=== PATIENT | female | born 1945 | race Caucasian/White ===

== ENCOUNTER 2020-11-26 05:56 | Observation (INO) ==
[2020-11-22 12:58] LABS: INR 1.1; PT Patient Result 11.9 SECS (9.8-11.9); Partial Thromboplastin Time 30.5 SECS (23.9-33.8)
[2020-11-22 13:20] LABS: Calcium 9.1 MG/DL (8.5-10.1); Osmolality,Calculated 280.5 MOS/KG (273-304); Potassium 4.7 MMOL/L (3.5-5.1)
[2020-11-22 13:22] LABS: Basophils % 0.4 % (0.0-0.8); Eosinophils # 0.2 10*3/uL (0.0-0.87); Eosinophils % 4.3 % (0.00-10.9); Hematocrit 39.5 VOL% (35.7-47.0); Hemoglobin 13.1 GM/DL (12.0-16.0); Immature Granulocytes % 0.4 %; Immature Granulocytes Absolute 0.02 #; Lymphocytes # 1.6 10*3/uL (1.4-4.0); Lymphocytes % 30.6 % (21.3-54.2); Mean Corpuscular HGB Conc 33.2 GM/DL (32-36); Mean Corpuscular Volume 91.4 FL (87-102); Neutrophils % 51.3 % (38.7-73.9); Platelet Count 125 T/CUMM (130-400); Red Blood Count 4.32 MC/CUMM (3.8-5.5); Red Cell Distribution Width 15.4 % (9.3-17.3); White Blood Count 5.1 T/CUMM (4-12)
[2020-11-26] MEDS ORDERED: LACTATED RINGERS 1,000 ML IV SCH (06:00)
[2020-11-26] MEDS ORDERED: BUPIVACAINE MPF 0.25% 30 ML VIAL ONE (06:11)
[2020-11-26] MEDS ORDERED: LIDOCAINE 1%/EPI INJ 20 ML VIAL ONE (06:11)
[2020-11-26] MEDS ORDERED: DIAZEPAM 5 MG TABLET PO ONE (06:23)
[2020-11-26] MEDS ORDERED: FAMOTIDINE 20 MG TABLET PO ONE (06:23)
[2020-11-26] MEDS ORDERED: SEVOFLURANE 1 UNIT/15 MINUTE INH ONE (06:25)
[2020-11-26] MEDS ORDERED: ROCURONIUM 50 MG/5 ML VIAL IV ONE (06:25)
[2020-11-26] MEDS ORDERED: ONDANSETRON 4 MG/2 ML VIAL ONE (06:25)
[2020-11-26] MEDS ORDERED: propofoL 200 MG/20 ML VIAL IV ONE (06:25)
[2020-11-26] MEDS ORDERED: LIDOCAINE 2% 5 ML VIAL ONE (06:25)
[2020-11-26] MEDS ORDERED: MIDAZOLAM 2 MG/2 ML VIAL ONE (06:26)
[2020-11-26] MEDS ORDERED: fentaNYL 100 MCG/2 ML VIAL ONE (06:26)
[2020-11-26] MEDS ORDERED: ceFAZolin 1,000 MG in SYRINGE 1 EACH IV ONE (06:30)
[2020-11-26] MEDS ORDERED: PHENYLEPHRINE 1 MG/10 ML SYRINGE IV ONE (08:17)
[2020-11-26] MEDS ORDERED: SUGAMMADEX 200 MG/2 ML VIAL IV ONE ×2 (08:59→09:31)
[2020-11-26] MEDS ORDERED: ACETAMINOPHEN INJ 1,000 MG/100 ML VIAL IV ONE (09:01)
[2020-11-26] MEDS ORDERED: TISSUE ADHESIVE 1 EACH APPLICATOR TOP ONE (09:04)
[2020-11-26] MEDS ORDERED: LACTATED RINGERS 1,000 ML IV ONE (09:09)
[2020-11-26] MEDS ORDERED: MORPHINE 4 MG/1 ML VIAL IV PRN (09:26)
[2020-11-26] MEDS ORDERED: ONDANSETRON 4 MG/2 ML VIAL IV PRN (09:26)
[2020-11-26] MEDS ORDERED: FUROSEMIDE 40 MG TABLET PO PRN (09:27)
[2020-11-26] MEDS ORDERED: ALBUTEROL 2.5 MG/3 ML NEB RESP TX PRN (09:27)
[2020-11-26] MEDS ORDERED: CETIRIZINE 10 MG TABLET PO PRN (09:27)
[2020-11-26] MEDS ORDERED: DEXAMETHASONE 4 MG/1 ML VIAL ONE (09:49)
[2020-11-26] MEDS: POLYVINYL ALCOHOL 1.4% OPH SOLN 15 ML BOTTLE BOTH EYES PRN ×2 (15:18→18:31)
[2020-11-26] MEDS: carvediloL 25 MG TABLET PO SCH (20:33)
[2020-11-27] MEDS: carvediloL 25 MG TABLET PO SCH ×2 (08:52→20:09)
[2020-11-27] MEDS: ATORVASTATIN 40 MG TABLET PO SCH (08:53)
[2020-11-27] MEDS: POTASSIUM CHLORIDE 20 MEQ TABLET PO SCH (08:53)
[2020-11-27] MEDS: OLMESARTAN 20 MG TABLET PO SCH (08:53)
[2020-11-28] MEDS: POTASSIUM CHLORIDE 20 MEQ TABLET PO SCH (08:46)
[2020-11-28] MEDS: OLMESARTAN 20 MG TABLET PO SCH (08:46)
[2020-11-28] MEDS: ATORVASTATIN 40 MG TABLET PO SCH (08:46)
[2020-11-28] MEDS: carvediloL 25 MG TABLET PO SCH (08:46)
[2020-11-28 11:23] VITALS: BP 110/42
== END 2020-11-28 12:35 | disposition home or self-care (01) ==
LOC: N.OR 05:56 → N.3E 05:56 → N.SDSINP 06:00 → N.3E 10:44
PROVIDERS: ADMIT Surgery; ATTEND Surgery